=== PATIENT | male | born 1945 | race Caucasian/White ===

== ENCOUNTER 2021-10-31 13:19 | Inpatient (IN) | payer MEDICARE, OTHER ==
[~2021-10-31] VITALS: Ht 177.8 cm; Wt 79.4 kg
--- NOTE | 2021-10-31 13:25 | NUR ---
BIB [facility], PICKED UP FROM A BUS STATION [facility], C/O BEING HUNGRY AND WEAK. "KICKED OUT OF HIS B&C" 3 DAYS AGO. TRYING TO GO BACK TO [facility]. PATIENT IS ALERT, ORIENTED X4. VITALS CHECKED.
[2021-10-31 14:29] LABS: BASOPHILS % (AUTO) 0.6 % (0.0-2.0); EOSINOPHILS % (AUTO) 0.8 % (0.0-6.0); HEMATOCRIT 37 % (39-51); HEMOGLOBIN 12.6 g/dL (13.5-17.5); LYMPHOCYTES # (AUTO) 0.9 K/uL (0.8-4.8); LYMPHOCYTES % (AUTO) 11.9 % (20.0-44.0); MEAN CORPUSCULAR HGB CONC 34 g/dl (31.0-36.0); MEAN CORPUSCULAR VOLUME 90 fL (80-96); MONOCYTES # (AUTO) 0.8 K/uL (0.1-1.30); MONOCYTES % (AUTO) 9.6 % (2.0-12.0); NEUTROPHILS # (AUTO) 6.1 K/uL (1.8-8.9); NEUTROPHILS % (AUTO) 77.1 % (43.0-81.0); PLATELET COUNT (AUTO) 189 K/uL (150-450); RED BLOOD CELL COUNT(AUTO) 4.15 MIL/uL (4.5-6.0)
--- NOTE | 2021-10-31 14:33 | NUR ---
CXR DONE AT BEDSIDE
[2021-10-31 14:43] LABS: CALCIUM, SERUM 9.2 mg/dL (8.5-10.1); CARBON DIOXIDE 21 mmol/L (21-32); CHLORIDE 106 mmol/L (98-107); GLUCOSE 134 mg/dL (74-106); POTASSIUM 4.5 mmol/L (3.5-5.1); SODIUM SERUM 137 mmol/L (136-145); UREA NITROGEN, BLOOD 27 mg/dL (7-18)
[2021-10-31 14:50] LABS: ALANINE AMINOTRANSFERASE 83 U/L (12-78); ALBUMIN 3.6 g/dL (3.4-5.0); ALKALINE PHOSPHATASE 156 U/L (46-116); ASPARTATE AMINOTRANSFERASE 52 U/L (15-37); BILIRUBIN,DIRECT 0.4 mg/dL (0.0-0.2); BILIRUBIN,TOTAL 1.2 mg/dL (0.2-1.0); TOTAL PROTEIN, SERUM 7.7 g/dL (6.4-8.2)
[2021-10-31 15:14] LABS: BILIRUBIN,URINE NEGATIVE (NEGATIVE); COLOR,URINE YELLOW (YELLOW); LEUKOCYTE ESTERASE ,URINE NEGATIVE (NEGATIVE); NITRITE, URINE NEGATIVE (NEGATIVE); PROTEIN,URINE TRACE mg/dl (NEGATIVE); UGLUCOSE 100 MG/DL mg/dL (NEGATIVE)
[2021-10-31 15:19] LABS: RBC,URINE 0-2 /HPF (0-2); WBC,URINE 0-2 /HPF (0-3)
[2021-10-31 15:20] LABS: BACTERIA,URINE Rare /HPF (None Seen); SQUAMOUS EPITHELIAL CELL,UR Few /HPF (None Seen)
[2021-10-31] MEDS ORDERED: IPRATROPIUM NEB FS 0.5 MG/2.5 ML AMPUL.NEB ONE (16:25)
[2021-10-31] MEDS ORDERED: ALBUTEROL FS 2.5 MG/3 ML VIAL.NEB ONE (16:25)
--- NOTE | 2021-10-31 16:25 | NUR ---
RT AT BEDSIDE TO NEBULIZE PATIENT.
[2021-10-31] MEDS ORDERED: IPRATROPIUM NEB FS 0.5 MG/2.5 ML AMPUL.NEB NEB ONE (16:30)
[2021-10-31] MEDS ORDERED: ALBUTEROL FS 2.5 MG/3 ML VIAL.NEB NEB ONE (16:30)
--- NOTE | 2021-10-31 18:10 | NUR ---
PATIENT FOR DISCHARGE BUT WAS ASKING HELP TO GET HIM TO [place]. ADMISSIONS PROVIDED HIM A TAP CARD BUT PT SAID HE CANNOT USE THAT IF HE WILL CATCH THE BUS TO [place]. SS/CM LEFT FOR THE DAY. PATIENT DOESN'T EVEN HAVE A CREDIT CARD/DEBIT CARD TO USE FOR UBER OR LIFT. CN GENER DECIDED TO PUT HIM IN RM 18 OR WAITING ROOM UNTIL MORNING SO SS CAN HELP HIM GET TRANSPORTATION. PATIENT WILL STAY IN WAITING ROOM AND HE REQUESTED THAT HE WILL NOT SIGN DISCHARGE UNTIL SOMEBODY HELP HIM
--- NOTE | 2021-11-01 08:00 | NUR ---
BREAKFAST TRAY PROVIDED. TOLERATED WELL
--- NOTE | 2021-11-01 09:54 | NUR ---
PUNCH PRESS SETTER AT BEDSIDE.
--- NOTE | 2021-11-01 11:56 | NUR ---
LUNCH TRAY PROVIDED. TOLERATED WELL
--- NOTE | 2021-11-01 12:08 | NUR ---
[facility], Harriett Pop, number [phone], Thu [phone]
--- NOTE | 2021-11-01 12:16 | NUR ---
Art will be coming to evaluate patient.
--- NOTE | 2021-11-01 13:52 | NUR ---
MOVE SHEET SUBMITTED AND CALLED FOR BED.
--- NOTE | 2021-11-01 15:30 | NUR ---
SNACKS PROVIDED, TOLERATED WELL
--- NOTE | 2021-11-01 17:23 | NUR ---
COVID SWAB DONE AND SENT TO LAB
--- NOTE | 2021-11-01 19:22 | NUR ---
ROOM 213-A
--- NOTE | 2021-11-01 19:49 | NUR ---
REPORT GIVEN TO GPS RN
--- NOTE | 2021-11-01 20:02 | NUR ---
PATIENT STATED HE FORGOT WHICH MEDS HE TAKES FOR DM, WILL CALL TO FOLLOW UP.
--- NOTE | 2021-11-01 21:39 | NUR ---
PATIENT TRASNFERRED, VSS, NO ACUTE DISTRESS NOTED.
[2021-11-01] MEDS ORDERED: ZOLPIDEM TARTRATE 5 MG TABLET PO PRN (22:00)
[2021-11-01] MEDS ORDERED: ACETAMINOPHEN 325 MG TABLET PO PRN (22:00)
[2021-11-01] MEDS ORDERED: MAGNESIUM HYDROXIDE 30 ML UDC PO PRN (22:00)
[2021-11-01] MEDS ORDERED: MAG HYDROX/AL HYDROX/SIMETH 30 ML UDC PO PRN (22:00)
[2021-11-01] MEDS ORDERED: BLOOD SUGAR DIAGNOSTIC 1 EACH STRIP IN ONE (22:30)
[2021-11-01] MEDS ORDERED: LORAZEPAM 1 MG TABLET PO PRN (22:30)
[2021-11-01] MEDS ORDERED: GLIP5TAB13 MT (22:36)
[2021-11-01] MEDS ORDERED: INSU100V7 SQ (22:36)
[2021-11-01] MEDS ORDERED: SITA100T MT (22:36)
[2021-11-01] MEDS ORDERED: INSU100V3 (22:36)
[2021-11-01] MEDS ORDERED: AMLO2.5T4 MT (22:36)
[2021-11-01] MEDS ORDERED: METF-440 MT (22:36)
[2021-11-01] MEDS ORDERED: GLYC-30 RC (22:51)
[2021-11-01] MEDS ORDERED: BISA10SU61 RC (22:52)
[2021-11-01 23:32] VITALS: BP 135/78
--- NOTE | 2021-11-02 00:31 | NUR ---
RN GPS: ADMISSION NOTES: ADMITTED THIS 76Y/O MALE PATIENT ADMIT FROM [facility], ADMITTED TO GPS ON 5150 HOLD, PER HOLD GD,THE DAUGHTER IN LAW REPORTS THAT PATIENT KEEPS GETTING KICKED OUT OF FACILITIES FOR NON COMPLIANCE AND NON COMPLIANT WITH HIS MEDICATIONS ,UPON FACE TO FACE ASSESSMENT PATIENT IS A&O X 2, CONFUSED, FORGETFUL ,DISORGNIZED, DELUSIONAL ,DISHELVED ,EASILY GETS AGITATED, VERY POOR HYGINE , DENIES SI /HI AT THIS TIME, PT. IS POOR HISTORIAN, POOR INSIGHT ,POOR JUDGEMENT , BOTH MD AWARE AND NOTIFIED OF THE ADMISSION, BELONGINGS CONTRABAND WERE DONE , PT. REFUSED TO SIGNS ADMISSION CONSENT PAPERS DUE TO SLEEPY ,ENCOURAGED PT. TO TAKE SHOWER, PT. RIGHTS DISCUSS BY LAB SYSTEMS ANALYST , PROVIDE THE PT. WITH HANDBOOK, AND MEDICATIONS GUIDE, ENVIRONMENTAL SAFETY CHECK DONE, ENCOURAGED PT. VERBALIZED ANY FEELING CONCERN TO STAFF, ORIENT TO UNIT POLICY, NO ACUTE DISTRESS NOTED,VITAL SIGNS WNL ,DENIES ANY PAIN AT THIS TIME,WILL CONTINUE TO MONITOR FOR Q15 SAFETY AND BEHAVIOR.
[2021-11-02] MEDS ORDERED: INSULIN REGULAR, HUMAN 100 UNIT/ML 3 ML VIAL SQ SCH (01:30)
[2021-11-02] MEDS ORDERED: BISACODYL SUPP (10 MG) 10 MG/SUPP.RECT SUPP.RECT RC PRN (01:30)
[2021-11-02] MEDS ORDERED: DEXTROSE 50%-WATER 50 ML DISP.SYRIN IV PRN ×2 (01:30→02:00)
[2021-11-02] MEDS ORDERED: GLYCERIN CHILD (PED) SUPP 1 SUPP.RECT RC PRN (01:30)
--- NOTE | 2021-11-02 06:29 | NUR ---
RN NOTES: NEXT OF KIN PLACED CALL MARIE DAUGHTER IN LAW AT THIS PHONE # [phone] , REGARDING ABOUT ADMISSION , LEFT MESSAGES.
[2021-11-02] MEDS ORDERED: BLOOD SUGAR DIAGNOSTIC 1 EACH STRIP IN SCH (07:30)
[2021-11-02 08:00] VITALS: BP 113/65
[2021-11-02] MEDS: BLOOD SUGAR DIAGNOSTIC 1 EACH STRIP IN SCH ×4 (08:55→21:46)
[2021-11-02] MEDS: AMLODIPINE BESYLATE 2.5 MG TABLET PO SCH (08:56)
[2021-11-02] MEDS: INSULIN REGULAR, HUMAN 100 UNIT/ML 3 ML VIAL SQ PRN ×3 (09:00→21:50)
[2021-11-02] MEDS: INSULIN GLARGINE, 100 UNIT/ML CARTRIDGE SQ SCH (09:04)
[2021-11-02] MEDS: METFORMIN 500 MG TABLET PO SCH ×2 (09:06→17:57)
[2021-11-02] MEDS: LINAGLIPTIN 5 MG TABLET PO SCH (11:01)
[2021-11-02] MEDS ORDERED: GLYCERIN RC PRN (12:00)
[2021-11-02 16:00] VITALS: BP 117/61
--- NOTE | 2021-11-02 18:26 | NUR ---
C/O CONSTIPATION,GIVEN MOM AND GLYCERINE SUPP. HAD LRG. BM.
[2021-11-02 20:00] VITALS: BP 146/69
[2021-11-02] MEDS: QUETIAPINE FUMARATE 25 MG TABLET PO SCH (21:08)
[2021-11-03] MEDS: BLOOD SUGAR DIAGNOSTIC 1 EACH STRIP IN SCH ×4 (07:11→21:32)
[2021-11-03 07:13] LABS: BASOPHILS % (AUTO) 0.9 % (0.0-2.0); EOSINOPHILS % (AUTO) 5.8 % (0.0-6.0); HEMATOCRIT 34 % (39-51); HEMOGLOBIN 11.3 g/dL (13.5-17.5); LYMPHOCYTES # (AUTO) 1.4 K/uL (0.8-4.8); LYMPHOCYTES % (AUTO) 33.5 % (20.0-44.0); MEAN CORPUSCULAR HGB CONC 34 g/dl (31.0-36.0); MEAN CORPUSCULAR VOLUME 92 fL (80-96); MONOCYTES # (AUTO) 0.6 K/uL (0.1-1.30); MONOCYTES % (AUTO) 13.6 % (2.0-12.0); NEUTROPHILS # (AUTO) 1.9 K/uL (1.8-8.9); NEUTROPHILS % (AUTO) 46.2 % (43.0-81.0); PLATELET COUNT (AUTO) 162 K/uL (150-450); RED BLOOD CELL COUNT(AUTO) 3.67 MIL/uL (4.5-6.0); WHITE BLOOD COUNT (AUTO) 4.1 K/uL (4.3-11.0)
[2021-11-03 07:28] LABS: CALCIUM, SERUM 8.2 mg/dL (8.5-10.1); CARBON DIOXIDE 22 mmol/L (21-32); CHLORIDE 109 mmol/L (98-107); CREATININE 0.8 mg/dL (0.6-1.3); GLUCOSE 230 mg/dL (74-106); POTASSIUM 4.1 mmol/L (3.5-5.1); SODIUM SERUM 139 mmol/L (136-145); UREA NITROGEN, BLOOD 22 mg/dL (7-18)
[2021-11-03 07:33] LABS: CHOLESTEROL 151 mg/dL (<200); HDL CHOLESTEROL 55 mg/dL (40-60); LDL 80 mg/dL (0-99); TRIGLYCERIDES 79 mg/dL (30-150)
[2021-11-03] MEDS: INSULIN REGULAR, HUMAN 100 UNIT/ML 3 ML VIAL SQ PRN ×3 (07:57→21:29)
[2021-11-03 08:00] VITALS: BP 129/52
[2021-11-03] MEDS: INSULIN GLARGINE, 100 UNIT/ML CARTRIDGE SQ SCH (08:16)
[2021-11-03] MEDS: METFORMIN 500 MG TABLET PO SCH ×2 (08:27→17:01)
[2021-11-03] MEDS: ESCITALOPRAM OXALATE (10 MG) 10 MG TABLET PO SCH (08:29)
[2021-11-03] MEDS: LINAGLIPTIN 5 MG TABLET PO SCH (08:29)
[2021-11-03] MEDS: AMLODIPINE BESYLATE 2.5 MG TABLET PO SCH (08:29)
[2021-11-03 16:00] VITALS: BP 147/85
--- NOTE | 2021-11-03 16:50 | NUR ---
RN-CO: PT DENIES PAIN AND DISCOMFORTS, HE SHOWERED TODAY BY HIMSELF (STAND BY ASSIST). NO AGITATION NOTED.
--- NOTE | 2021-11-03 18:27 | NUR ---
RN-CO: FOLLOWED UP ON THE X RAY OF THE RIB, SPOKE TO [facility] . THEY WILL COME TOMM. ENDORSE TO THE NEXT SHIFT.
--- NOTE | 2021-11-03 18:28 | NUR ---
RN-CO: CALLED DR CLARK , MADE HIM AWARE OF THE CONSULT AND ORDERED CT ROUTINE FOR TOMORROW. NOTED.
[2021-11-03 21:14] VITALS: BP 122/69
[2021-11-03] MEDS: QUETIAPINE FUMARATE 25 MG TABLET PO SCH (21:27)
[2021-11-04] MEDS: BLOOD SUGAR DIAGNOSTIC 1 EACH STRIP IN SCH ×4 (07:45→21:16)
[2021-11-04] MEDS: INSULIN REGULAR, HUMAN 100 UNIT/ML 3 ML VIAL SQ PRN ×4 (07:47→21:21)
[2021-11-04 08:00] VITALS: BP 126/60
[2021-11-04] MEDS: METFORMIN 500 MG TABLET PO SCH ×2 (08:17→17:01)
[2021-11-04] MEDS: AMLODIPINE BESYLATE 2.5 MG TABLET PO SCH (09:16)
[2021-11-04] MEDS: LINAGLIPTIN 5 MG TABLET PO SCH (09:16)
[2021-11-04] MEDS: ESCITALOPRAM OXALATE (10 MG) 10 MG TABLET PO SCH (09:16)
--- NOTE | 2021-11-04 09:17 | NUR ---
SW Admit Source: Patient placed on a 5150 hold for GD. Patient was found on the streets confused and was naked on the free. Patient has been non compliant with his medications. Patient is currently homeless and reported that he was living on the streets. Patient reported he lost his apartment a month ago. Patient would want to go live with his son. SW will help to find appropriate placement.
--- NOTE | 2021-11-04 09:17 | NUR ---
ENRIQUE Initial Discharge Plan: Patient is currently homeless and reported that he was living on the streets. Patient reported he lost his apartment a month ago. Patient would want to go live with his son. ENRIQUE will confirm with daughter in law Harriett ([phone]). ENRIQUE will work with the MD, treatment team, and family to help coordinate appropriate discharge.
--- NOTE | 2021-11-04 09:23 | NUR ---
Social Work Note/Substance Abuse Intervention: Patient was provided with a brief substance abuse intervention and referred to [facility] ([phone]), [facility] ([phone]), and [facility] ([phone]) for smoking.
[2021-11-04] MEDS: INSULIN GLARGINE, 100 UNIT/ML CARTRIDGE SQ SCH (09:24)
--- NOTE | 2021-11-04 12:49 | NUR ---
ENRIQUE Family Contact: ENRIQUE attempted to contact patient's daughter in law Harriett ([phone]) to discuss treatment plan and discharge plan. Harriett was unavailable and this real estate underwriter left a voicemail.
[2021-11-04 16:00] VITALS: BP 140/67
[2021-11-04 19:58] VITALS: BP 122/59
[2021-11-04] MEDS: QUETIAPINE FUMARATE 25 MG TABLET PO SCH (21:14)
[2021-11-05] MEDS: BLOOD SUGAR DIAGNOSTIC 1 EACH STRIP IN SCH ×4 (07:53→21:46)
[2021-11-05] MEDS: INSULIN REGULAR, HUMAN 100 UNIT/ML 3 ML VIAL SQ PRN ×3 (07:56→21:55)
[2021-11-05 08:00] VITALS: BP 123/55
[2021-11-05] MEDS: AMLODIPINE BESYLATE 2.5 MG TABLET PO SCH (08:10)
[2021-11-05] MEDS: LINAGLIPTIN 5 MG TABLET PO SCH (08:10)
[2021-11-05] MEDS: ESCITALOPRAM OXALATE (10 MG) 10 MG TABLET PO SCH (08:10)
[2021-11-05] MEDS: METFORMIN 500 MG TABLET PO SCH ×2 (08:10→17:04)
[2021-11-05] MEDS: INSULIN GLARGINE, 100 UNIT/ML CARTRIDGE SQ SCH (09:24)
--- NOTE | 2021-11-05 11:40 | NUR ---
ENRIQUE Note: SW spoke with pt in regards to placement. Pt stated that he would want this insurance underwriter to find him placement in the [place] location.
--- NOTE | 2021-11-05 11:41 | NUR ---
SNF Referral: SW sent clinicals to [facility] to [facility] ([phone]) [facility] for [facility]. SW sent H & P, progress notes, and medication list.
[2021-11-05 12:21] LABS: IRON, SERUM 77 ug/dl (50-175); TOTAL IRON BINDING CAPACITY 288 ug/dl (250-450)
--- NOTE | 2021-11-05 14:40 | NUR ---
SNF Referral: ENRIQUE sent clinicals to [facility] ([phone]) [place] for placement option. ENRIQUE sent H & P, progress notes, and medication list.
--- NOTE | 2021-11-05 14:41 | NUR ---
SNF Contact: SW received a call from [facility] bender ([phone]) and stated pt is accepted at [facility].
--- NOTE | 2021-11-05 14:41 | NUR ---
SW Note: SW spoke with pt regarding being accepted at [facility] and pt was acceptable of going.
[2021-11-05 16:00] VITALS: BP 103/60
--- NOTE | 2021-11-05 19:30 | NUR ---
RN OPENING NOTE PATIENT IN BED, EASILY AWAKENED. PATIENT IS A/O X 2-3 AT THIS TIME. PATIENT CALM AT THIS TIME, REFUSED TO GET CHANGED AT THIS TIME. SAFETY MEASURES IMPLEMENTED: BED LOCKED AND IN LOWEST POSITION, BED LOCKED AND IN LOWEST POSITION, BED ALARM ON. WILL MONITOR PATIENT CLOSELY.
[2021-11-05] MEDS: QUETIAPINE FUMARATE 25 MG TABLET PO SCH (21:47)
--- NOTE | 2021-11-05 22:00 | NUR ---
BS 239 MG/DL. 4 UNITS OF REGULAR INSULIN GIVEN FOR COVERAGE. WILL MONITOR FOR HYPO/HYPERGLYCEMIA
[2021-11-06 08:00] VITALS: BP 134/52
[2021-11-06] MEDS: BLOOD SUGAR DIAGNOSTIC 1 EACH STRIP IN SCH ×4 (08:02→22:04)
[2021-11-06] MEDS: LINAGLIPTIN 5 MG TABLET PO SCH (09:00)
--- NOTE | 2021-11-06 09:17 | NUR ---
WOUND CARE CONSULT: PT PRESENTS AMBULATORY BUT INCONTINENT WITH DRY SCABS ON LEGS AND LONG TOENAILS. PT IS REQUESTING PODIATRY. DPM CONSULT CALLED TO DR CHAVEZ. WILL SEE PRN.
[2021-11-06] MEDS: INSULIN REGULAR, HUMAN 100 UNIT/ML 3 ML VIAL SQ PRN ×4 (09:41→22:08)
[2021-11-06] MEDS: INSULIN GLARGINE, 100 UNIT/ML CARTRIDGE SQ SCH (09:42)
[2021-11-06] MEDS: METFORMIN 500 MG TABLET PO SCH ×2 (09:48→17:29)
[2021-11-06] MEDS: AMLODIPINE BESYLATE 2.5 MG TABLET PO SCH (09:48)
[2021-11-06] MEDS: ESCITALOPRAM OXALATE (10 MG) 10 MG TABLET PO SCH (09:48)
--- NOTE | 2021-11-06 15:13 | NUR ---
Individual Counseling: SW attempted to meet with pt. in activity room. Pt. was engaged and participating in activity with recruiter coordinator. SW will continue to monitor patient's ability to participate in millieu.
[2021-11-06 16:00] VITALS: BP 154/64
--- NOTE | 2021-11-06 18:25 | NUR ---
cooperative,med compliant,no complaints.
--- NOTE | 2021-11-06 19:45 | NUR ---
GPS RN NOTES RECEIVED SITTING ON CHAIR BY THE HALLWAYS,A/O X3,COOPERATIVE,AMBULATE SLOWLY WITH STEADY GAIT,FOLLOW INSTRUCTIONS,MED OCMPLIANT,NO BEHAVIORAL PROBLEM NOTED.WILL CONTINUE TO MONITOR BEHAVIOR.
[2021-11-06 20:00] VITALS: BP 157/56
[2021-11-06] MEDS: QUETIAPINE FUMARATE 25 MG TABLET PO SCH (21:48)
--- NOTE | 2021-11-06 22:00 | NUR ---
GPS RN NOTES ACCU-CHECK BLOOD SUGAR CHECKED 240MG/DL,COVRED WITH HUMULIN R 4 UNTS PER SLIDING SCALE.SNACKS AT BEDSIDE.
--- NOTE | 2021-11-07 06:56 | NUR ---
GPS RN NOTES SLEEP WELL AT NIGHT,CALM AND FOLLOW INSTRUCTIONS,MED COMPLIANT.
[2021-11-07] MEDS: BLOOD SUGAR DIAGNOSTIC 1 EACH STRIP IN SCH ×4 (07:40→21:20)
[2021-11-07] MEDS: INSULIN REGULAR, HUMAN 100 UNIT/ML 3 ML VIAL SQ PRN ×4 (07:56→21:24)
[2021-11-07 08:00] VITALS: BP 114/64
[2021-11-07] MEDS: ESCITALOPRAM OXALATE (10 MG) 10 MG TABLET PO SCH (08:06)
[2021-11-07] MEDS: METFORMIN 500 MG TABLET PO SCH ×2 (08:06→17:11)
[2021-11-07] MEDS: LINAGLIPTIN 5 MG TABLET PO SCH (08:07)
[2021-11-07] MEDS: AMLODIPINE BESYLATE 2.5 MG TABLET PO SCH (08:07)
[2021-11-07] MEDS: INSULIN GLARGINE, 100 UNIT/ML CARTRIDGE SQ SCH (08:08)
[2021-11-07] MEDS: VITAMINS A AND D 56.7 GM TUBE TP SCH (09:15)
[2021-11-07 16:00] VITALS: BP 132/68
[2021-11-07 20:00] VITALS: BP 156/75
[2021-11-07] MEDS: QUETIAPINE FUMARATE 25 MG TABLET PO SCH (21:15)
--- NOTE | 2021-11-07 22:00 | NUR ---
BLOOD SUGAR 278 MG/DL. 6 UNITS OF REGULAR INSULIN GIVEN FOR COVERAGE. WILL MONITOR FOR HYPO/HYPERGLYCEMIA.
[2021-11-08] MEDS: BLOOD SUGAR DIAGNOSTIC 1 EACH STRIP IN SCH ×2 (07:55→12:16)
[2021-11-08 08:00] VITALS: BP 143/75
--- NOTE | 2021-11-08 08:04 | NUR ---
SW Discharge Note: Patient will be discharged to nursing home facility to [facility] [address] [place] [address]; . Please arrange Ambulance transportation for patient to be picked up at 2PM. House Carpenter Helper spoke with KAVITA, Railroad Track Inspector at [facility]; ([phone], who stated patient will be accepted at facility today. Patient is alert and oriented x3.. Patient denies any suicidal or homicidal ideations. Patient is aware and agreeable with discharge plans. Patient does not have any supportive contact at this time. Patient will continue to follow-up with her Psychiatrist Dr. Alvarez [address] [address], [place] [address]; ([phone]) and Leather Toggler Dr. Browne at [address], [place] [address]; ([phone]). Patient refused to sign the homeless waiver upon discharge and a copy was placed in the chart. Homeless resources were provided and include [address] information line for shelters and homeless resources. A copy of all resources given to patient was also placed in the chart. Pt presents with euthymic mood and congruent affect.
[2021-11-08] MEDS: INSULIN GLARGINE, 100 UNIT/ML CARTRIDGE SQ SCH (08:07)
[2021-11-08] MEDS: INSULIN REGULAR, HUMAN 100 UNIT/ML 3 ML VIAL SQ PRN ×2 (08:08→12:15)
[2021-11-08 08:11] VITALS: BP 143/75
[2021-11-08] MEDS: LINAGLIPTIN 5 MG TABLET PO SCH (08:11)
[2021-11-08] MEDS: AMLODIPINE BESYLATE 2.5 MG TABLET PO SCH (08:11)
[2021-11-08] MEDS: METFORMIN 500 MG TABLET PO SCH (08:11)
[2021-11-08] MEDS: ESCITALOPRAM OXALATE (10 MG) 10 MG TABLET PO SCH (08:11)
[2021-11-08] MEDS: VITAMINS A AND D 56.7 GM TUBE TP SCH (08:12)
--- NOTE | 2021-11-08 14:00 | NUR ---
GPS/RN PT [facility] [address] [facility] [address]; . REPORT GIVEN TO MARK RN PRESCRIPTIONS AND EXIT CARE INSTRUCTIONS PROVIDED. PT IS AMBULATORY NO DISTRESS. VSS. NO SI OR HI AT THE TIME OF DISCHARGE. PT REFUSED PICTURES ON DISCHARGE. PROPERTY RETURNED. LEFT UNIT VIA AMBULANCE
== END 2021-11-08 14:00 | DRG 885 ==
LOC: ER 13:23 → GPS 11-01 20:56
PROVIDERS: ADMIT Psychiatry & Neurology Psychiatry; ATTEND Nurse Practitioner Family
DX: F33.3 Major depressive disorder, recurrent, severe with psychotic symptoms (principal); E11.65 Type 2 diabetes mellitus with hyperglycemia; F03.91 Unspecified dementia, unspecified severity, with behavioral disturbance; C67.9 Malignant neoplasm of bladder, unspecified; E86.0 Dehydration; E78.5 Hyperlipidemia, unspecified; D64.9 Anemia, unspecified; F41.9 Anxiety disorder, unspecified; I10 Essential (primary) hypertension; K21.9 Gastro-esophageal reflux disease without esophagitis; Z20.822 Contact with and (suspected) exposure to COVID-19; Z79.4 Long term (current) use of insulin; Z79.84 Long term (current) use of oral hypoglycemic drugs; Z79.899 Other long term (current) drug therapy; Z91.81 History of falling; R52 Pain, unspecified; R74.01 Elevation of levels of liver transaminase levels; R79.89 Other specified abnormal findings of blood chemistry; L85.3 Xerosis cutis; Z85.51 Personal history of malignant neoplasm of bladder; Z81.8 Family history of other mental and behavioral disorders; Z91.19 Patient's noncompliance with other medical treatment and regimen; Z59.02 Unsheltered homelessness
CPT/HCPCS: 36415; 70450-TC; 71045-TC; 71100-TC; 80048-TC; 80061-TC; 80076-TC; 81001; 82962-TC; 83540-TC; 84443-TC; 84484-TC; 85025-TC; 87081-TC; 97116-TC; 97530-TC; C9803; J1815

== ENCOUNTER 2024-08-26 22:58 | Emergency (ER) | payer MEDICARE, OTHER ==
[~2024-08-26] VITALS: Ht 177.8 cm; Wt 77.1 kg
[~2024-08-26 22:58] MED LIST: AMLO2.5T4 MT; BISA10SU61 RC; GLIP5TAB13 MT; GLYC-30 RC; INSU100V3; INSU100V7 SQ; METF-440 MT; SITA100T MT
[2024-08-26] MEDS: IV NS 0.9% 1,000 ML BAG IV ONE (23:12)
[2024-08-26 23:28] LABS: BASOPHILS % (AUTO) 0.4 % (0.0-2.0); EOSINOPHILS # (AUTO) 0.1 K/uL (0.0-0.7); EOSINOPHILS % (AUTO) 2.4 % (0.0-6.0); HEMATOCRIT 29 % (39-51); LYMPHOCYTES # (AUTO) 0.9 K/uL (0.8-4.8); LYMPHOCYTES % (AUTO) 19.6 % (20.0-44.0); MEAN CORPUSCULAR HEMOGLOBIN 32 PG (26.0-33.0); MEAN CORPUSCULAR HGB CONC 34 g/dl (31.0-36.0); MEAN CORPUSCULAR VOLUME 95 fL (80-96); MONOCYTES # (AUTO) 0.8 K/uL (0.1-1.30); MONOCYTES % (AUTO) 17.2 % (2.0-12.0); NEUTROPHILS # (AUTO) 2.8 K/uL (1.8-8.9); NEUTROPHILS % (AUTO) 60.4 % (43.0-81.0); PLATELET COUNT (AUTO) 85 K/uL (150-450); RED CELL DISTRIBUTION WIDTH 14.8 % (11.5-15.0); WHITE BLOOD COUNT (AUTO) 4.7 K/uL (4.3-11.0)
[2024-08-26 23:39] LABS: ABG BASE EXCESS -4.7 mmol/L (-2.0-3.0); ABG PCO2 29.7 mmHg (35.0-48.0); ABG PH 7.421 (7.350-7.450); ABG TOTAL HEMOGLOBIN 10.3 G/dL (13.5-17.5); COHb 0.1 % (0.5-1.5); MetHb 0.2 % (0.0-1.5); O2Hb 96.7 % (94.0-97.0); SITE, ABG RIGHT RADIAL
[2024-08-26 23:47] LABS: CALCIUM, SERUM 8.2 mg/dL (8.5-10.1); CREATININE 1.3 mg/dL (0.6-1.3); POTASSIUM 4.7 mmol/L (3.5-5.1)
[2024-08-27 00:10] LABS: APPEARANCE,URINE CLEAR (CLEAR); BILIRUBIN,URINE NEGATIVE (NEGATIVE); BLOOD, URINE NEGATIVE Ery/uL (NEGATIVE); COLOR,URINE YELLOW (YELLOW); KETONES,URINE NEGATIVE (NEGATIVE); LEUKOCYTE ESTERASE ,URINE NEGATIVE (NEGATIVE); NITRITE, URINE NEGATIVE (NEGATIVE); PH,URINE 6.5 (5.0-8.0); PROTEIN,URINE NEGATIVE (NEGATIVE); UGLUCOSE 3+ mg/dL (NEGATIVE); UROBILINOGEN,URINE 0.2 EU/dL (0.2)
[2024-08-27 00:30] LABS: ADD URINE CULTURE YES; BACTERIA,URINE Few /HPF (None Seen); RBC,URINE 0-2 /HPF (0-2); SQUAMOUS EPITHELIAL CELL,UR Moderate /HPF (None Seen)
[2024-08-27 00:36] LABS: NEUTROPHILS % (MANUAL) 69 (42-76)
[2024-08-27 00:37] LABS: EOSINOPHILS % (MANUAL) 1 % (0-4); LYMPHOCYTES % (MANUAL) 22 % (16-48); MONOCYTES % (MANUAL) 9 % (0-11.0); PLATELET ESTIMATE DECREASED
[2024-08-27] MEDS ORDERED: INSULIN REGULAR, HUMAN 100 UNIT/ML 10 ML VIAL ONE (01:30)
[2024-08-27] MEDS: INSULIN REGULAR, HUMAN 100 UNIT/ML 10 ML VIAL IV ONE (01:30)
[2024-08-27] MEDS: IV NS 0.9% 1,000 ML BAG IV ONE (04:14)
[2024-08-27 11:01] VITALS: BP 128/56; TEMP 98; O2SAT 99
== END 2024-08-27 11:01 ==
LOC: ER 23:04
DX: E11.65 Type 2 diabetes mellitus with hyperglycemia (principal); D64.9 Anemia, unspecified; D69.6 Thrombocytopenia, unspecified; F02.80 Dementia in other diseases classified elsewhere, unspecified severity, without behavioral disturbance, psychotic disturbance, mood disturbance, and anxiety; F17.200 Nicotine dependence, unspecified, uncomplicated; G30.9 Alzheimer's disease, unspecified; I10 Essential (primary) hypertension; J44.9 Chronic obstructive pulmonary disease, unspecified; Z79.4 Long term (current) use of insulin; Z79.84 Long term (current) use of oral hypoglycemic drugs
CPT/HCPCS: 99285; 71045; 96361 ×2; 82803; 85025; 80048; 87086; 82010; 81001; 36415; 82962 ×8; 36600; 96374; 85007; J7030 ×2; J1815